=== PATIENT | female | born 1945 | race Two or more races ===

== ENCOUNTER 2021-06-28 08:50 | Emergency (ER) | payer MEDICARE, MEDICAID ==
[~2021-06-28] VITALS: Ht 162.6 cm; Wt 68.0 kg
[2021-06-28 09:11] VITALS: BP 192/74
[2021-06-28 11:01] LABS: Basophils # (auto) 0 10 ^3/uL (0-0.2); Monocytes # (auto) 0.5 10 ^3/uL (0-1.3); Neutrophils # (auto) 4.7 10 ^3/uL (1.6-8.6); Red Cell Distribution Width 12.4 % (11.8-14.3); White Blood Cell 6.5 10^3/uL (4.4-10.8)
[2021-06-28 11:07] LABS: Basophils % (auto) 0.6 % (0.0-2.0); Eosinophils # (auto) 0 10 ^3/uL (0-0.8); Eosinophils % (auto) 0.6 % (0.0-7.0); Hemoglobin 14.2 g/dL (12.2-16.2); Lymphocytes # (auto) 1.2 10 ^3/uL (0.4-5.4); Lymphocytes % (auto) 18.6 % (10.0-50.0); Mean Corpuscular Hemoglobin 34.7 pg (28.0-32.0); Mean Corpuscular Hgb Conc. 34.7 g/dL (32.0-36.0); Monocytes % (auto) 7.3 % (0.0-12.0); Neutrophils % (auto) 72.9 % (37.0-80.0); Nucleated Red Blood Cells % 0.1 %
[2021-06-28 11:14] LABS: INR 0.99 (0.9-1.15); Partial Thromboplastin Time 24.8 sec (23.6-33.0)
[2021-06-28 11:27] LABS: Albumin 3.4 g/dL (3.4-5.0); Calcium 9.6 mg/dL (8.5-10.1)
[2021-06-28 11:31] LABS: BUN/Creatinine Ratio 6.6; Bilirubin, Total 0.6 mg/dL (0.2-1.0)
== END 2021-06-28 12:05 | disposition left against medical advice (07) ==
LOC: ER 08:50
DX: S80.811A Abrasion, right lower leg, initial encounter (principal); S09.90XA Unspecified injury of head, initial encounter; I10 Essential (primary) hypertension; I48.91 Unspecified atrial fibrillation; W18.39XA Other fall on same level, initial encounter; Y93.89 Activity, other specified; Y92.89 Other specified places as the place of occurrence of the external cause; Y99.8 Other external cause status
CPT/HCPCS: 36415; 70450; 73590; 80053; 83880; 84484; 85025; 85610; 85730; 93005

== ENCOUNTER 2021-06-30 09:19 | Emergency (ER) | payer MEDICARE, MEDICAID ==
[~2021-06-30] VITALS: Ht 157.5 cm; Wt 59.0 kg
[2021-06-30 10:47] VITALS: BP 159/52
[2021-06-30] MEDS ORDERED: ONDANSETRON ODT 4 MG TAB PO ONE (11:15)
[2021-06-30] MEDS ORDERED: HYDROcodone-ACET 5/325MG TAB PO ONE (11:15)
[2021-06-30] MEDS ORDERED: TETANUS-DIPTH-ACEL PERTUSSIS 0.5ML SYR Tdap IM ONE (11:15)
[2021-06-30] MEDS ORDERED: cefTRIAXone SOD 1,000 MG VL IM ONE (11:15)
[2021-06-30] MEDS ORDERED: BACITRACIN TOP OINT 1 UD PKG TOP ONE (11:45)
[2021-06-30] MEDS ORDERED: NEOMYCIN-BACITRACIN-POLYM UNITDOSE PKG TOP OINT TOP ONE (12:00)
[2021-06-30] MEDS ORDERED: ACET-1158 PO (12:08)
[2021-06-30] MEDS ORDERED: BACIOIN15 TOP (12:08)
[2021-06-30] MEDS ORDERED: CEPH-509 PO (12:08)
[2021-06-30] MEDS ORDERED: CLIN300C8 PO (12:08)
== END 2021-06-30 12:27 | disposition home or self-care (01) ==
LOC: ER 09:19
DX: S81.801A Unspecified open wound, right lower leg, initial encounter (principal); I10 Essential (primary) hypertension; W18.09XA Striking against other object with subsequent fall, initial encounter; Y93.89 Activity, other specified; Y92.89 Other specified places as the place of occurrence of the external cause; Y99.8 Other external cause status
CPT/HCPCS: 90471; 90715; 96372; 99284; J0696; Q0162

== ENCOUNTER 2021-07-02 07:33 | Emergency (ER) | payer MEDICARE, MEDICAID ==
[~2021-07-02] VITALS: Ht 157.5 cm; Wt 62.1 kg
[~2021-07-02 07:33] MED LIST: ACET-1158 PO; BACIOIN15 TOP; CEPH-509 PO; CLIN300C8 PO
[2021-07-02 07:34] VITALS: BP 162/64
== END 2021-07-02 08:24 | disposition home or self-care (01) ==
LOC: ER 07:33
DX: S81.801D Unspecified open wound, right lower leg, subsequent encounter (principal); I10 Essential (primary) hypertension; Z90.710 Acquired absence of both cervix and uterus; X58.XXXD Exposure to other specified factors, subsequent encounter